=== PATIENT | male | born 1960 | race Caucasian/White ===

== ENCOUNTER 2017-01-28 07:34 | Day surgery (SDC) | payer BC ==
[2017-01-27 08:14] VITALS: BMI 37.5
[~2017-01-28 07:34] MED LIST: LACTATED RINGERS 1,000 ML IV SCH
[2017-01-28 08:19] VITALS: RESP 16; TEMP 97.3
[2017-01-28] MEDS ORDERED: PROPOFOL 10 MG/ML 20 ML VIAL IV ONE (09:05)
[2017-01-28] MEDS ORDERED: LIDOCAINE 1% INJ 10MG/ML (20 ML MDV) ONE (09:05)
--- NOTE | 2017-01-28 09:20 | P.PCN ---
Date of Procedure: 01/28/17 Procedure(s) Performed: BRIEF HISTORY: Patient is a 56-year-old pleasant white male, scheduled for an elective colonoscopy as a part of screening for colorectal neoplasia. PROCEDURE PERFORMED: Colonoscopy with snare polypectomy. PREOPERATIVE DIAGNOSIS: Screening for colon cancer. IV sedation per Anesthesia. PROCEDURE: After informed consent was obtained, the patient, was brought into the endoscopy unit. IV sedation was administered by Anesthesia under continuous monitoring. Digital rectal examination was normal. Initially the Olympus CF- 160 flexible video colonoscope was then inserted in the rectum, gradually advanced into the cecum without any difficulty. Careful examination was performed as the scope was gradually being withdrawn. Ileocecal valve and the appendiceal orifice were visualized and appeared normal. Prep was excellent. Mucosa of the cecum, appeared normal. In the ascending colon there was a 7-8 mm polyp that was removed by snare polypectomy. The rest of the ascending colon , transverse colon, descending colon, sigmoid colon, and rectum appeared normal. Scattered sigmoidal reticulosis seen. Retroflexion was performed in the rectum and no lesions were seen. The patient tolerated the procedure well. IMPRESSION: 7-8 mm ascending colon polyp status post polypectomy Scattered sigmoid diverticulosis. RECOMMENDATIONS: Findings of this examination were discussed with the patient as well as his family. He was advised to follow with the biopsy results. If the biopsy shows a tubular adenoma, he can have a repeat colonoscopy in 5 years.
[2017-01-28 09:56] VITALS: BP 108/73; PULSE 48
== END 2017-01-28 10:19 | disposition home or self-care (01) ==
LOC: EDBD → ORWHC2ENDO 07:34 → MERGE 08:25 → ORWHC2ENDO 10:19
PROVIDERS: ATTEND Internal Medicine Gastroenterology
DX: Z12.11 Encounter for screening for malignant neoplasm of colon (principal); D12.2 Benign neoplasm of ascending colon; K57.30 Diverticulosis of large intestine without perforation or abscess without bleeding; F17.200 Nicotine dependence, unspecified, uncomplicated
CPT/HCPCS: 45385; 88305; J2001; J2704

== ENCOUNTER → 2017-07-30 | Outpatient (CLI) | payer BC ==
[~2017-07-30] MED LIST changes: -LACTATED RINGERS 1,000 ML IV SCH; +REGADENOSON 0.4 MG/5 ML SYRINGE IV ONE
--- NOTE | 2017-07-30 11:54 | NM ---
EXAMINATION TYPE: NM stress lexiscan cardiolite DATE OF EXAM: 07/30/2017 COMPARISON: NONE HISTORY: Chest pain TECHNIQUE: After the intravenous administration of 10.39 mCi Tc 99m Sestamibi - Cardiolite resting S PECT images acquired 45 minutes post injection. The patient received 0.4mg Lexiscan, 26.9 mCi Tc 99m Sestamibi - Stress images obtained [address] injection FINDINGS: Review of stress and rest SPECT images demonstrates no reversible perfusion abnormality. There is a m oderate fixed defect involving the anterior and septal cruz as well as the ventricular apex in the d istribution of the left anterior descending coronary artery from prior infarct. Gated analysis shows hypokinesis of the anterior septal wall with an estimated left ventricular ejection fraction of 59 %. TID of 1.13 is within normal limits. IMPRESSION: 1. No scintigraphic evidence for reversible ischemia. 2. Moderate defect representing old area of infarct in the distribution of the left anterior descendi ng coronary artery. 3. Estimated left ventricular ejection fraction of 59%.
--- NOTE | 2017-07-30 12:09 | EST ---
EXERCISE STRESS DATE OF SERVICE: 07/30/2017 AGE: 57 SEX: Male HT: 5'10" WT: 250 PROTOCOL: Lexiscan Cardiolite STAGE: DURATION OF EXERCISE: HEART RATE REST: 72 BLOOD PRESSURE REST: 131/86 MAXIMUM HEART RATE ACHIEVED: 99 MAXIMUM BLOOD PRESSURE: 145/90 85% MPHR: 142 100% MPHR: 165 METS: INDICATIONS: Family history. CLINICAL INFORMATION: This patient underwent a Lexiscan Cardiolite stress test. This is the ECG portion of the stress test. Nuclear portion will be reported separately. Baseline heart rate 72 beats per minute. Baseline blood pressure 131/86 mmHg. Baseline 12-lead ECG shows sinus rhythm with normal cardiac intervals patient. The patient received Lexiscan infusion per protocol. He denied any chest discomfort. The heart rates and blood pressure remained within normal limits. No ECG evidence for ischemia. No arrhythmias noted. MMODL / IJN: [id number] /
== END | disposition home or self-care (01) ==
LOC: RADNMMAIN 08:20
PROVIDERS: ATTEND Internal Medicine
DX: I25.2 Old myocardial infarction (principal)
CPT/HCPCS: 93017; 78452; A9500; J2785

== ENCOUNTER → 2017-08-12 | Outpatient (CLI) | payer BC ==
[2017-08-12 10:13] LABS: HCT 45.7 % (39.0-53.0); HGB 15.6 gm/dL (13.0-17.5); MCH 30.7 pg (25.0-35.0); MCHC 34.1 g/dL (31.0-37.0); MCV 90.1 fL (80.0-100.0); Mean Platelet Volume 8.7; Platelet Count 184 k/uL (150-450); RBC 5.07 m/uL (4.30-5.90); RDW 13.1 % (11.5-15.5); WBC 5.4 k/uL (3.8-10.6)
[2017-08-12 10:26] LABS: Anion Gap 12 mmol/L; Blood Urea Nitrogen 17 mg/dL (9-20); Carbon Dioxide 29 mmol/L (22-30); Chloride 102 mmol/L (98-107); Potassium 4.9 mmol/L (3.5-5.1); Sodium 143 mmol/L (137-145)
== END | disposition home or self-care (01) ==
LOC: LABPAT 09:44
PROVIDERS: ATTEND Internal Medicine Cardiovascular Disease
DX: Z01.812 Encounter for preprocedural laboratory examination (principal); R94.30 Abnormal result of cardiovascular function study, unspecified
CPT/HCPCS: 36415; 80051; 82565; 84520; 85027

== ENCOUNTER 2017-08-21 06:09 | Day surgery (SDC) | payer BC ==
[2017-08-13 16:16] VITALS: BMI 35.2
[2017-08-21] MEDS ORDERED: ALPRAZolam 0.25 MG TAB PO PRN (06:24)
[2017-08-21] MEDS ORDERED: NITROGLYCERIN SL TABS 0.4 MG TAB SUBLINGUAL PRN (06:24)
[2017-08-21] MEDS ORDERED: ASPIRIN 325 MG TAB PO STA (06:24)
[2017-08-21] MEDS ORDERED: SODIUM CHLORIDE 0.9% 1,000 ML in EMPTY BAG 1 BAG IV ONE (06:24)
[2017-08-21] MEDS ORDERED: ALPRAZolam 0.5 MG TAB PO PRN (06:24)
[2017-08-21] MEDS ORDERED: ATORVASTATIN 80 MG TAB PO STA (06:24)
[2017-08-21 07:14] LABS: Basophils % (A) 0 %; Eosinophils # (A) 0.1 k/uL (0-0.7); Eosinophils % (A) 2 %; HCT 43.3 % (39.0-53.0); HGB 14.8 gm/dL (13.0-17.5); Lymphocytes # (A) 1.9 k/uL (1.0-4.8); Lymphocytes % (A) 38 %; MCH 31.3 pg (25.0-35.0); MCHC 34.2 g/dL (31.0-37.0); MCV 91.6 fL (80.0-100.0); Mean Platelet Volume 8.8; Monocytes # (A) 0.4 k/uL (0-1.0); Monocytes % (A) 8 %; Neutrophils # (A) 2.5 k/uL (1.3-7.7); Neutrophils % (A) 50 %; Platelet Count 179 k/uL (150-450); RBC 4.73 m/uL (4.30-5.90); RDW 13.1 % (11.5-15.5)
[2017-08-21 07:22] LABS: Anion Gap 12 mmol/L; Blood Urea Nitrogen 22 mg/dL (9-20); Calcium 9.1 mg/dL (8.4-10.2); Carbon Dioxide 24 mmol/L (22-30); Chloride 109 mmol/L (98-107); Glucose 98 mg/dL (74-99); Potassium 4.3 mmol/L (3.5-5.1); Sodium 145 mmol/L (137-145)
[2017-08-21] MEDS: MIDAZOLAM 2 MG/2 ML VIAL IVP ONE ×2 (07:43→07:46)
[2017-08-21] MEDS ORDERED: fentaNYL (PF) 50 MCG/ML 2 ML AMP IVP ONE (07:43)
[2017-08-21] MEDS ORDERED: LIDOCAINE 2% INJ 20 MG/ML SQ ONE (07:46)
[2017-08-21] MEDS: VERAPAMIL SYRINGE (5 MG/10 ML) INTRAARTER ONE ×2 (07:49→08:08)
[2017-08-21] MEDS ORDERED: VERAPAMIL SYRINGE (5 MG/10 ML) INTRAARTER ONE (07:49)
[2017-08-21] MEDS ORDERED: HEPARIN SODIUM 1,000 UN/ML (10ML VL) IV ONE (07:50)
[2017-08-21] MEDS ORDERED: IOPAMIDOL-370 125ML BTL INJ ONE (08:08)
[2017-08-21] MEDS ORDERED: SODIUM CHLORIDE 0.9% 1,000 ML IV SCH ×2 (08:15→13:30)
[2017-08-21] MEDS ORDERED: RX INFO: IV CONTRAST WAS GIVEN 1 EACH MISC MISCELLANE PRN ×2 (08:15→13:28)
--- NOTE | 2017-08-21 08:23 | P.PCN ---
Date of Procedure: 08/21/17 Preoperative Diagnosis: Chest pain and abnormal stress test Postoperative Diagnosis: Normal coronary arteries Procedure(s) Performed: Left heart catheterization without left ventriculography Description of Procedure: HISTORY: This is a 57-year-old gentleman with history of of ischemic heart disease in the family who was recently evaluated by stress test at the hospital because of chest pains. It was reported as showing fixed defect involving the anteroapical segment suggestive of myocardial infarction. However her LV function was preserved. Patient is given the choice of dobutamine echo or medical therapy with monitoring or cardiac catheterization for definitive diagnosis. Patient family preferred to have cardiac Catheterization. CONSENT:I have discussed the risks, benefits and alternative therapies for the above-mentioned procedure and for both sedation/analgesia as well as necessary blood product administration, if indicated, as they pertain to this patient. The patient has indicated understanding and acceptance of the risks and procedures discussed. PROCEDURE: Patient was brought to the lab in a fasting state. Patient was given some IV sedation. The right wrist is infiltrated with lidocaine and right radial artery was entered using Seldinger technique. A 6-Austrian catheter was left in place and selective coronary arteriography was performed. Patient tolerated the procedure well. TR band was applied for hemostasis. No immediate complications were noted and patient was transferred to [facility] in a stable condition Conscious Sedation: Versed 2 mg Fentanyl 50 g Duration 25 minutes HEMODYNAMICS: The aortic pressure is about 120/70. Left ankle end-diastolic pressure was not measured. SELECTIVE CORONARY ARTERIOGRAPHY: LEFT MAIN: Normal length and patent THE LEFT ANTERIOR DESCENDING CORONARY ARTERY: This is a good caliber vessel giving rise to several diagonal septal branches. The LAD and branches are free of occlusive disease. THE LEFT CIRCUMFLEX AND IS CORONARY ARTERY: This is a moderate caliber vessel and nondominant. He of occlusive disease THE RIGHT CORONARY ARTERY: This is a huge caliber vessel and nondominant giving rise to good-sized PDA and PLV branches. The RCA and its branches are free of occlusive disease. LEFT VENTRICULOGRAPHY: Not performed FINAL IMPRESSION: Normal coronary arteries. PLAN: Medical therapy and this factor modification PROGNOSIS: Fair
[2017-08-21 09:08] VITALS: TEMP 98
[2017-08-21 10:58] VITALS: RESP 16
[2017-08-21 11:40] VITALS: BP 127/72; PULSE 56
[2017-08-21] MEDS ORDERED: METOPROLOL TARTRATE 25 MG TAB PO SCH (21:00)
== END 2017-08-21 11:40 | disposition home or self-care (01) ==
LOC: CATHCVL 06:09
PROVIDERS: ATTEND Internal Medicine Cardiovascular Disease
DX: R07.89 Other chest pain (principal); R94.39 Abnormal result of other cardiovascular function study; Z82.49 Family history of ischemic heart disease and other diseases of the circulatory system; E78.00 Pure hypercholesterolemia, unspecified; Z87.891 Personal history of nicotine dependence; Z79.82 Long term (current) use of aspirin; Z91.048 Other nonmedicinal substance allergy status
CPT/HCPCS: 93454; 80048; 85025; C1894 ×2; C1769; J2001; J2250; J3010; J1644; Q9967

== ENCOUNTER 2018-04-08 06:34 | Observation (INO) | payer BC ==
--- NOTE | 2018-04-08 07:12 | XR ---
EXAMINATION TYPE: XR chest 2V DATE OF EXAM: 04/08/2018 COMPARISON: NONE HISTORY: Left-sided chest pain and pressure. Heaviness for 2 days. TECHNIQUE: Frontal and lateral views of the chest are obtained. FINDINGS: Overlying EKG leads are seen. There is no focal air space opacity, pleural effusion, or pne umothorax seen. The cardiac silhouette size is within normal limits. The osseous structures are in tact. IMPRESSION: No acute cardiopulmonary process.
--- NOTE | 2018-04-08 07:26 | ED ---
General Adult HPI - General Chief complaint: Chest Pain Stated complaint: Chest pain Source: patient Mode of arrival: wheelchair Limitations: no limitations - History of Present Illness Initial comments: Dictation was produced using Butlr dictation software. please excuse any grammatical, word or spelling errors. Chief Complaint: 57-year-old male past medical history of hip replacement presents with several weeks of chest pressure. History of Present Illness: Patient is a 57-year-old male with no significant medical history presents with chest pressure. He states his pain radiates to his neck and his left shoulder. He states he's been under a lot of stress. Port site is strong, history of cardiac disease. He had a cardiac cath performed earlier this year with no significant findings. Patient is a former smoker. Patient denies any diaphoresis with the chest pain. No nausea or vomiting. He denies that his symptoms are exacerbated with movement. Denies any shortness of breath. The ROS documented in this emergency department record has been reviewed and confirmed by me. Those systems with pertinent positive or negative responses have been documented in the HPI. All other systems are other negative and/or noncontributory. - Related Data Home Medications Medication Instructions Recorded Confirmed Ascorbic Acid [Vitamin C] 500 mg PO DAILY 04/08/18 04/08/18 Aspirin 650 mg PO ONCE 04/08/18 04/08/18 Ferrous Sulfate [Feosol] 325 mg PO DAILY 04/08/18 04/08/18 Magnesium 200 mg PO DAILY 04/08/18 04/08/18 Potassium 99 mg PO DAILY 04/08/18 04/08/18 Vitamin B Complex 1 cap PO DAILY 04/08/18 04/08/18 Allergies Allergy/AdvReac Type Severity Reaction Status Date / Time nickel Allergy showed up Verified 04/08/18 07:18 on allergy test Review of Systems ROS Statement: Those systems with pertinent positive or pertinent negative responses have been documented in the HPI. ROS Other: All systems not noted in ROS Statement are negative. Past Medical History Past Medical History: Myocardial Infarction (ID), Osteoarthritis (OA) Additional Past Medical History / Comment(s): see Dr. Crespo H & P History of Any Multi-Drug Resistant Organisms: None Reported Past Surgical History: Heart Catheterization, Joint Replacement, Orthopedic Surgery Additional Past Surgical History / Comment(s): RT hip replaced. RT KNEE SX. RT index FINGER REATTACHED. FACIAL RECONSTRUCTION. BONE GRAFTS-dental surg. BILAT CATARACT REMOVED Past Anesthesia/Blood Transfusion Reactions: No Reported Reaction Past Psychological History: No Psychological Hx Reported Smoking Status: Former smoker Past Alcohol Use History: Occasional Past Drug Use History: None Reported - Past Family History Mother Family Medical History: No Reported History General Exam - General Exam Comments Initial Comments: PHYSICAL EXAM: General Impression: Alert and oriented x3, not in acute distress HEENT: Normocephalic atraumatic, extra-ocular movements intact, pupils equal and reactive to light bilaterally, mucous membranes moist. Cardiovascular: Heart regular rate and rhythm, S1&S2 audible, no murmurs, rubs or gallops Chest: Lungs clear to auscultation bilaterally, no rhonchi, no wheeze, no rales Abdomen: Bowel sounds present, abdomen soft, non-tender, non-distended, no organomegaly Musculoskeletal: Pulses present and equal in all extremities, no peripheral edema Motor: Power 5/5 bilaterally, no focal deficits noted Neurological: CN II-XII grossly intact, no focal motor or sensory deficits noted Skin: Intact with no visualized rashes Psych: Normal affect and mood Limitations: no limitations Course Vital Signs 04/08/18 04/08/18 06:38 06:54 Temperature 98.3 F Pulse Rate 60 63 Respiratory 17 17 Rate Blood Pressure 144/87 137/95 O2 Sat by Pulse 97 98 Oximetry Medical Decision Making - Medical Decision Making ED course: 57-year-old male with clinical presentation consistent with atypical chest pain with typical features. Vital signs upon arrival are within acceptable limits. No old EKG for comparison. There appears to be nonspecific changes however no signs of active ischemia or infarction.Laboratory evaluation obtained. CBC, coag panel, metabolic panel, cardiac enzymes, BNP are unremarkable. Patient reevaluated found to be comfortable. At this point there is no clinical indication for administration of heparin. Given that patient has atypical chest pain with typical features and multiple risk factors we'll plan to have patient admitted to observation for cardiology consultation and serial troponins. Patient given aspirin. Patient understandable agreeable to disposition. EKG Interpretation: A 12 lead EKG was obtained. It was interpreted by myself and attending physician. There is a P wave before every QRS complex. Rate is 58. Rhythm is sinus bradycardia,. Interval 184, QS 102, QTC 422. QT is not prolonged. No ST segment depression or elevation. Overall, this EKG is unremarkable - Lab Data Result diagrams: 04/08/18 06:59 04/08/18 06:59 Lab Results 04/08/18 04/08/18 04/08/18 Range/Units 06:59 06:59 06:59 WBC 5.0 (3.8-10.6) k/uL RBC 4.91 (4.30-5.90) m/uL Hgb 15.1 (13.0-17.5) gm/dL Hct 45.7 (39.0-53.0) % MCV 93.2 (80.0-100.0) fL MCH 30.8 (25.0-35.0) pg MCHC 33.0 (31.0-37.0) g/dL RDW 13.3 (11.5-15.5) % Plt Count 188 (150-450) k/uL Neutrophils % 51 % Lymphocytes % 36 % Monocytes % 8 % Eosinophils % 3 % Basophils % 1 % Neutrophils # 2.5 (1.3-7.7) k/uL Lymphocytes # 1.8 (1.0-4.8) k/uL Monocytes # 0.4 (0-1.0) k/uL Eosinophils # 0.1 (0-0.7) k/uL Basophils # 0.0 (0-0.2) k/uL PT (9.0-12.0) sec INR (<1.2) APTT (22.0-30.0) sec Sodium 141 (137-145) mmol/L Potassium 4.3 (3.5-5.1) mmol/L Chloride 108 H (98-107) mmol/L Carbon Dioxide 24 (22-30) mmol/L Anion Gap 9 mmol/L BUN 17 (9-20) mg/dL Creatinine 0.84 (0.66-1.25) mg/dL Est GFR (CKD-EPI)AfAm >90 (>60 ml/min/1.73 sqM) Est GFR (CKD-EPI)NonAf >90 (>60 ml/min/1.73 sqM) Glucose 105 H (74-99) mg/dL Calcium 9.4 (8.4-10.2) mg/dL Magnesium 2.4 H (1.6-2.3) mg/dL Total Bilirubin 0.6 (0.2-1.3) mg/dL AST 27 (17-59) U/L ALT 21 (21-72) U/L Alkaline Phosphatase 48 (38-126) U/L Total Creatine Kinase 88 (55-170) U/L CK-MB (CK-2) 1.0 (0.0-2.4) ng/mL CK-MB (CK-2) Rel Index 1.1 Troponin I <0.012 (0.000-0.034) ng/mL NT-Pro-B Natriuret Pep pg/mL Total Protein 7.4 (6.3-8.2) g/dL Albumin 4.4 (3.5-5.0) g/dL 04/08/18 04/08/18 Range/Units 06:59 06:59 WBC (3.8-10.6) k/uL RBC (4.30-5.90) m/uL Hgb (13.0-17.5) gm/dL Hct (39.0-53.0) % MCV (80.0-100.0) fL MCH (25.0-35.0) pg MCHC (31.0-37.0) g/dL RDW (11.5-15.5) % Plt Count (150-450) k/uL Neutrophils % % Lymphocytes % % Monocytes % % Eosinophils % % Basophils % % Neutrophils # (1.3-7.7) k/uL Lymphocytes # (1.0-4.8) k/uL Monocytes # (0-1.0) k/uL Eosinophils # (0-0.7) k/uL Basophils # (0-0.2) k/uL PT 10.0 (9.0-12.0) sec INR 0.9 (<1.2) APTT 24.5 (22.0-30.0) sec Sodium (137-145) mmol/L Potassium (3.5-5.1) mmol/L Chloride (98-107) mmol/L Carbon Dioxide (22-30) mmol/L Anion Gap mmol/L BUN (9-20) mg/dL Creatinine (0.66-1.25) mg/dL Est GFR (CKD-EPI)AfAm (>60 ml/min/1.73 sqM) Est GFR (CKD-EPI)NonAf (>60 ml/min/1.73 sqM) Glucose (74-99) mg/dL Calcium (8.4-10.2) mg/dL Magnesium (1.6-2.3) mg/dL Total Bilirubin (0.2-1.3) mg/dL AST (17-59) U/L ALT (21-72) U/L Alkaline Phosphatase (38-126) U/L Total Creatine Kinase (55-170) U/L CK-MB (CK-2) (0.0-2.4) ng/mL CK-MB (CK-2) Rel Index Troponin I (0.000-0.034) ng/mL NT-Pro-B Natriuret Pep 16 pg/mL Total Protein (6.3-8.2) g/dL Albumin (3.5-5.0) g/dL Disposition Clinical Impression: Chest pain Disposition: ADMITTED IP TO THIS HOSP Condition: Fair Referrals: Celeste Smith MD [Primary Care Provider] - 1-2 days Decision Time: 08:17
[2018-04-08 07:28] LABS: Basophils % (A) 1 %; Eosinophils # (A) 0.1 k/uL (0-0.7); Eosinophils % (A) 3 %; HCT 45.7 % (39.0-53.0); HGB 15.1 gm/dL (13.0-17.5); Lymphocytes # (A) 1.8 k/uL (1.0-4.8); Lymphocytes % (A) 36 %; MCH 30.8 pg (25.0-35.0); MCV 93.2 fL (80.0-100.0); Mean Platelet Volume 8.4; Monocytes # (A) 0.4 k/uL (0-1.0); Monocytes % (A) 8 %; Neutrophils # (A) 2.5 k/uL (1.3-7.7); Neutrophils % (A) 51 %; Platelet Count 188 k/uL (150-450); RBC 4.91 m/uL (4.30-5.90); RDW 13.3 % (11.5-15.5)
[2018-04-08 07:32] LABS: ALT 21 U/L (21-72); AST 27 U/L (17-59); Albumin 4.4 g/dL (3.5-5.0); Alkaline Phosphatase 48 U/L (38-126); Anion Gap 9 mmol/L; Blood Urea Nitrogen 17 mg/dL (9-20); Calcium 9.4 mg/dL (8.4-10.2); Carbon Dioxide 24 mmol/L (22-30); Chloride 108 mmol/L (98-107); Glucose 105 mg/dL (74-99); Magnesium 2.4 mg/dL (1.6-2.3); Potassium 4.3 mmol/L (3.5-5.1); Sodium 141 mmol/L (137-145); Total Bilirubin 0.6 mg/dL (0.2-1.3); Total Protein 7.4 g/dL (6.3-8.2)
[2018-04-08 07:37] LABS: INR 0.9 (<1.2); Partial Thromboplastin Time 24.5 sec (22.0-30.0)
[2018-04-08 07:44] LABS: Creatine Kinase 88 U/L (55-170)
[2018-04-08 07:58] LABS: Troponin I <0.012 ng/mL (0.000-0.034)
[2018-04-08] MEDS ORDERED: ASPIRIN 81 MG PO STA (08:07)
[2018-04-08] MEDS ORDERED: NITROGLYCERIN SL TABS 0.4 MG TAB SUBLINGUAL PRN (08:17)
[2018-04-08] MEDS ORDERED: SODIUM CHLORIDE 0.9% 1,000 ML IV SCH (08:30)
[2018-04-08 09:23] VITALS: RESP 18
[2018-04-08 11:46] VITALS: BP 121/72; PULSE 53; TEMP 98.2
[2018-04-08 13:52] LABS: Creatine Kinase 62 U/L (55-170)
[2018-04-08 14:06] LABS: Creatine Kinase MB 0.6 ng/mL (0.0-2.4); Troponin I <0.012 ng/mL (0.000-0.034)
--- NOTE | 2018-04-08 14:07 | P.CRDCN ---
History of Present Illness History of present illness: This is a pleasant 57-year-old male past medical history significant for former nicotine dependence. He denies history of coronary artery disease, hypertension, dyslipidemia or diabetes mellitus. He follows with Dr. Crespo in the office. We have been asked to see him in consultation for chest pain. Earlier this year in July he underwent a Lexiscan stress test as an outpatient that showed a fixed defect of anteroapical region. He then underwent an elective catheterization for further investigation. The cath revealed normal coronary arteries with no evidence of obstructive disease in any of the coronary arteries. He states for the last 2 months he has been experiencing a tight squeezing sensation in his chest intermittently. The symptoms typically come when he is either at work or talking about woek. He is currently dealing with a very stressful situation at work. 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 He denies ever having these symptoms while he is walking or exerting himself. He denies radiation to the arm, back, neck or jaw. He denies associated shortness of breath, dizziness, palpitations, nausea, vomiting or diaphoresis. EKG reveals sinus bradycardia heart rate 58. Chest x-ray is negative for an acute cardiopulmonary process. Laboratory data reviewed, WBC 5.0, hemoglobin 15.1, platelets 188, sodium 141, potassium 4.3, creatinine 0.84, magnesium 2.4, cardiac enzymes negative 1, NT proBNP 16. He takes no daily cardiac medications. He does take magnesium supplementation he states secondary to his poor diet. He has been advised to decrease the frequency her dose of this medication. At the time of my exam: CONSTITUTIONAL: Denies fever. Denies chills. EYES: Denies blurred vision. Denies vision changes. Denies eye pain. EARS, NOSE, MOUTH & THROAT: Denies headache. Denies sore throat. Denies ear pain. CARDIOVASCULAR: Denies chest pain. Denies shortness of breath. Denies orthopnea. Denies PND. Denies palpitations. RESPIRATORY: Denies cough. GASTROINTESTINAL: Denies abdominal pain. Denies diarrhea. Denies constipation. Denies nausea. Denies vomiting. MUSCULOSKELETAL: Denies myalgias. INTEGUMENTARY: Denies pruitis. Denies rash. NEUROLOGIC: Denies numbness. Denies tingling. Denies weakness. PSYCHIATRIC: Denies anxiety. Denies depression. ENDOCRINE: Denies fatigue. Denies weight change. Denies polydipsia. Denies polyurina. GENITOURINARY: Denies burning, hematuria or urgency with micturation. HEMATOLOGIC: Denies history of anemia. Denies bleeding. Blood pressure 121/72 heart rate 53 afebrile maintaining oxygen saturation on room air GENERAL: This is a 57-year-old male in no apparent distress at the time of my examination. HEENT: Head is atraumatic, normocephalic. Pupils are equal, round. Sclerae anicteric. Conjunctivae are clear. Mucous membranes of the mouth are moist. Neck is supple. There is no jugular venous distention. No carotid bruit is heard. LUNGS: Clear to auscultation no wheezes, rales or rhonchi. No chest wall tenderness is noted on palpation or with deep breathing. HEART: Regular rate and rhythm without murmurs, rubs or gallops. S1 and S2 heard. ABDOMEN: Soft, nontender. Bowel sounds are heard. No organomegaly noted. EXTREMITIES: No evidence of peripheral edema and no calf tenderness noted. VASCULAR: Radial and dorsalis pedis pulses palpated, no evidence of clubbing. NEUROLOGIC: Patient is awake, alert and oriented x3. ASSESSMENT Chest pain, atypical. Recent cardiac catheterization performed in July of this year showed normal coronary arteries with no disease. Possible anxiety reaction due to increased stress surrounding his job. Former nicotine dependence, quit 2016 Obesity, BMI 37 PLAN Continue to obtain serial cardiac enzymes to rule out an acute coronary event. With recent normal cardiac catheterization, there is no further cardiac workup at this time. If enzymes are normal she is stable from a cardiac perspective. Follow up with Dr. Crespo as needed. Thank you kindly for this consultation. Nurse Practitioner note has been reviewed, I agree with a documented findings and plan of care. Patient was seen and examined. Past Medical History Past Medical History: Myocardial Infarction (TN), Osteoarthritis (OA) Additional Past Medical History / Comment(s): Prior TN found diagnostically, arthritis lower R side of back, LLD syndrome (R leg shorter). Last Myocardial Infarction Date:: unkn History of Any Multi-Drug Resistant Organisms: None Reported Past Surgical History: Heart Catheterization, Joint Replacement, Orthopedic Surgery Additional Past Surgical History / Comment(s): 07/2017 Cardiac cath-normal, R hip muscle surgery then total R hip arthroplasty, R knee arthroscopic surgery, R index finger reattachment, facial reconstruction, dental surgery with bone graft, colonoscopy with benign polyp, bilateral cataract removals with lens implants. Past Anesthesia/Blood Transfusion Reactions: No Reported Reaction Smoking Status: Former smoker - Past Family History Mother Family Medical History: COPD Additional Family Medical History / Comment(s): Mother from emphysema at the age of 79yrs. Brother(s) Family Medical History: Myocardial Infarction (TN) Additional Family Medical History / Comment(s): Brother had a TN at the age of 45yrs. He at the age of 65yrs. Father Family Medical History: Coronary Artery Disease (CAD), Myocardial Infarction (TN ), Vascular Disorder Additional Family Medical History / Comment(s): Father had a TN in his late 50s. He had AAA repair, He at the age of 85yrs from sepsis-during a cholecystectomy his bowel was perforated. Medications and Allergies Home Medications Medication Instructions Recorded Confirmed Type Ascorbic Acid [Vitamin C] 500 mg PO DAILY 04/08/18 04/08/18 History Aspirin 650 mg PO ONCE 04/08/18 04/08/18 History Ferrous Sulfate [Feosol] 325 mg PO DAILY 04/08/18 04/08/18 History Magnesium 200 mg PO DAILY 04/08/18 04/08/18 History Potassium 99 mg PO DAILY 04/08/18 04/08/18 History Vitamin B Complex 1 cap PO DAILY 04/08/18 04/08/18 History Allergies Allergy/AdvReac Type Severity Reaction Status Date / Time nickel Allergy showed up Verified 04/08/18 07:18 on allergy test Physical Exam Vitals: Vital Signs Temp Pulse Pulse Resp BP BP Pulse Ox 04/08/18 11:44 98.2 F 53 L 18 121/72 98 04/08/18 11:20 52 L 18 124/79 99 04/08/18 09:22 88 18 137/95 96 04/08/18 06:54 63 17 137/95 98 04/08/18 06:38 98.3 F 60 17 144/87 97 Intake and Output 04/07/18 04/08/18 04/08/18 22:59 06:59 14:59 Other: Weight 113.398 kg 117 kg Results 04/08/18 06:59 12/13/18 06:59 Cardiac Enzymes 04/08/18 04/08/18 Range/Units 06:59 06:59 AST 27 (17-59) U/L CK-MB (CK-2) 1.0 (0.0-2.4) ng/mL Troponin I <0.012 (0.000-0.034) ng/mL Coagulation 04/08/18 Range/Units 06:59 PT 10.0 (9.0-12.0) sec APTT 24.5 (22.0-30.0) sec CBC 04/08/18 Range/Units 06:59 WBC 5.0 (3.8-10.6) k/uL RBC 4.91 (4.30-5.90) m/uL Hgb 15.1 (13.0-17.5) gm/dL Hct 45.7 (39.0-53.0) % Plt Count 188 (150-450) k/uL Comprehensive Metabolic Panel 04/08/18 Range/Units 06:59 Sodium 141 (137-145) mmol/L Potassium 4.3 (3.5-5.1) mmol/L Chloride 108 H (98-107) mmol/L Carbon Dioxide 24 (22-30) mmol/L BUN 17 (9-20) mg/dL Creatinine 0.84 (0.66-1.25) mg/dL Glucose 105 H (74-99) mg/dL Calcium 9.4 (8.4-10.2) mg/dL AST 27 (17-59) U/L ALT 21 (21-72) U/L Alkaline Phosphatase 48 (38-126) U/L Total Protein 7.4 (6.3-8.2) g/dL Albumin 4.4 (3.5-5.0) g/dL Current Medications Generic Name Dose Route Start Last Admin Trade Name Freq PRN Reason Stop Dose Admin Aspirin 325 mg 04/09/18 09:00 Aspirin PO DAILY MARTIN Sodium Chloride 1,000 mls @ 100 mls/hr 04/08/18 08:30 04/08/18 09:20 Saline 0.9% IV 100 mls/hr .Q10H MARTIN Administration Nitroglycerin 0.4 mg 04/08/18 08:17 Nitrostat SUBLINGUAL Q5M PRN Chest Pain Intake and Output 04/07/18 04/08/18 04/08/18 22:59 06:59 14:59 Other: Weight 113.398 kg 117 kg Patient Weight 04/09/18 06:59 Weight 117 kg 04/08/18 06:59 04/08/18 06:59
--- NOTE | 2018-04-08 16:05 | P.HPIM ---
History of Present Illness this is a pleasant 57 yo m who presents with intermittent chest pain that comes and goes over the last 2 months , each time it lasts about 10-15 min, radiating to the neck and arms. Mild to moderate in severity however it is gone now. No associated dyspnea. No sweating. It has been associated with some dizziness but has been resolved to now. Patient denies history of recent surgery or travel. He is not tachycardic and he is saturating 98% on room air. He denies dyspnea. No leg pain or swelling or induration. No hemoptysis. No history of malignancy. Coat Agent evaluated the patient and acute coronary syndrome has been ruled out as per their team. 2 cardiac enzymes were negative. Patient has history of negative cardiac catheter last July as per cardiology team. Cartilage team cleared the patient for discharge. however pt has a lot of stress from work , he wants to retire in3 months and they want him to leave earlier than that . Patient was cleared medically and cardiology sleep for discharge. Problems and management plan was discussed with the patient and he verbalized understanding and acceptance Patient is found stable and can be discharged home however he needs follow-up as an outpatient. He has an appointment with his PCP Dr. Smith next week Patient was consult if he develops any recurrent chest pain, dyspnea on any other symptoms like coughing, hemoptysis, dizziness, to come to the emergency room and call 911 Review of Systems CONSTITUTIONAL: No fever, no malaise, no fatigue. HEENT: No recent visual problems or hearing problems. Denied any sore throat. CARDIOVASCULAR: No orthopnea, PND, no palpitations, no syncope. PULMONARY: No shortness of breath, no cough, no hemoptysis. GASTROINTESTINAL: No diarrhea, no nausea, no vomiting, no abdominal pain. Normoactive bowel sounds. NEUROLOGICAL: No headaches, no weakness, no numbness. HEMATOLOGICAL: Denies any bleeding or petechiae. GENITOURINARY: Denies any burning micturition, frequency, or urgency. MUSCULOSKELETAL/RHEUMATOLOGICAL: Denies any joint pain, swelling, or any muscle pain. ENDOCRINE: Denies any polyuria or polydipsia. Past Medical History Past Medical History: Myocardial Infarction (OR), Osteoarthritis (OA) Additional Past Medical History / Comment(s): Prior OR found diagnostically, arthritis lower R side of back, LLD syndrome (R leg shorter). Last Myocardial Infarction Date:: unkn History of Any Multi-Drug Resistant Organisms: None Reported Past Surgical History: Heart Catheterization, Joint Replacement, Orthopedic Surgery Additional Past Surgical History / Comment(s): 07/2017 Cardiac cath-normal, R hip muscle surgery then total R hip arthroplasty, R knee arthroscopic surgery, R index finger reattachment, facial reconstruction, dental surgery with bone graft, colonoscopy with benign polyp, bilateral cataract removals with lens implants. Past Anesthesia/Blood Transfusion Reactions: No Reported Reaction Smoking Status: Former smoker - Past Family History Mother Family Medical History: COPD Additional Family Medical History / Comment(s): Mother from emphysema at the age of 79yrs. Brother(s) Family Medical History: Myocardial Infarction (OR) Additional Family Medical History / Comment(s): Brother had a OR at the age of 45yrs. He at the age of 65yrs. Father Family Medical History: Coronary Artery Disease (CAD), Myocardial Infarction (OR ), Vascular Disorder Additional Family Medical History / Comment(s): Father had a OR in his late 50s. He had AAA repair, He at the age of 85yrs from sepsis-during a cholecystectomy his bowel was perforated. Medications and Allergies Home Medications Medication Instructions Recorded Confirmed Type Ascorbic Acid [Vitamin C] 500 mg PO DAILY 04/08/18 04/08/18 History Aspirin 650 mg PO ONCE 04/08/18 04/08/18 History Ferrous Sulfate [Feosol] 325 mg PO DAILY 04/08/18 04/08/18 History Magnesium 200 mg PO DAILY 04/08/18 04/08/18 History Potassium 99 mg PO DAILY 04/08/18 04/08/18 History Vitamin B Complex 1 cap PO DAILY 04/08/18 04/08/18 History Allergies Allergy/AdvReac Type Severity Reaction Status Date / Time nickel Allergy showed up Verified 04/08/18 07:18 on allergy test Physical Exam Vitals: Vital Signs Temp Pulse Pulse Resp BP BP Pulse Ox 04/08/18 11:44 98.2 F 53 L 18 121/72 98 04/08/18 11:20 52 L 18 124/79 99 04/08/18 09:22 88 18 137/95 96 04/08/18 06:54 63 17 137/95 98 04/08/18 06:38 98.3 F 60 17 144/87 97 Intake and Output 04/08/18 04/08/18 04/08/18 06:59 14:59 22:59 Other: Weight 113.398 kg 117 kg GENERAL: The patient is alert and oriented x3, not in any acute distress. Well developed, well nourished. HEENT: Pupils are round and equally reacting to light. EOMI. No scleral icterus. No conjunctival pallor. Normocephalic, atraumatic. No pharyngeal erythema. No thyromegaly. CARDIOVASCULAR: S1 and S2 present. No murmurs, rubs, or gallops. PULMONARY: Chest is clear to auscultation, no wheezing or crackles. ABDOMEN: Soft, nontender, nondistended, normoactive bowel sounds. No palpable organomegaly. MUSCULOSKELETAL: No joint swelling or deformity. EXTREMITIES: No cyanosis, clubbing, or pedal edema. NEUROLOGICAL: Gross neurological examination did not reveal any focal deficits. SKIN: No rashes. Results CBC & Chem 7: 04/08/18 06:59 04/08/18 06:59 Labs: Abnormal Lab Results - Last 24 Hours (Table) 04/08/18 Range/Units 06:59 Chloride 108 H (98-107) mmol/L Glucose 105 H (74-99) mg/dL Magnesium 2.4 H (1.6-2.3) mg/dL Thrombosis Risk Factor Assmnt - Choose All That Apply Any of the Below Risk Factors Present?: Yes Each Factor Represents 1 point: Age 41-60 years, Obesity (BMI >25) Other Risk Factors: No Other congenital or acquired thrombophilia - If yes, enter type in comment: No Thrombosis Risk Factor Assessment Total Risk Factor Score: 2 Thrombosis Risk Factor Assessment Level: Low Risk Assessment and Plan Plan: This is a pleasant 57 years old male who presents because of chest pain, which has been resolved. Cardiology cleared the patient for discharge. Patient chest pain resolved now and he doesn't have any other symptoms. Chest pain could be musculoskeletal or related to work stress. Suspicion for pulmonary causes is very low as patient doesn't have any respiratory symptoms, His saturations well and his chest pain has resolved. Patient was advised to follow up with his PCP on possible GI workup as an outpatient. GI contact information has been provided for the patient.
--- NOTE | 2018-04-08 16:06 | P.DS ---
Providers Date of admission: 04/08/18 08:19 Attending physician: Macario Cisneros Consults: 04/08/18 08:07 Consult Physician Routine Consulting Provider: Dom Crespo Consult Reason/Comments: chest pain Do you want consulting provider notified?: Yes Primary care physician: Celeste Smith [place] [facility] Course: Please review H&P from today Patient Condition at Discharge: Fair Plan - Discharge Summary Discharge Rx Participant: No New Discharge Prescriptions: No Action Ferrous Sulfate [Feosol] 325 mg PO DAILY Aspirin 650 mg PO ONCE Ascorbic Acid [Vitamin C] 500 mg PO DAILY Vitamin B Complex 1 cap PO DAILY Potassium 99 mg PO DAILY Magnesium 200 mg PO DAILY Discharge Medication List Ascorbic Acid [Vitamin C] 500 mg PO DAILY 04/08/18 [History] Aspirin 650 mg PO ONCE 04/08/18 [History] Ferrous Sulfate [Feosol] 325 mg PO DAILY 04/08/18 [History] Magnesium 200 mg PO DAILY 04/08/18 [History] Potassium 99 mg PO DAILY 04/08/18 [History] Vitamin B Complex 1 cap PO DAILY 04/08/18 [History] Follow up Appointment(s)/Referral(s): Abby Gayle MD [STAFF PHYSICIAN] - 1 Week (disposition clerk ) Celeste Smith MD [Primary Care Provider] - 1-2 days Dom Crespo MD [STAFF PHYSICIAN] - 2 Weeks Activity/Diet/Wound Care/Special Instructions: Cardiac diet Activity is limited till you see your doctor Discharge Disposition: HOME SELF-CARE
[2018-04-09] MEDS ORDERED: ASPIRIN 325 MG TAB PO SCH (09:00)
== END 2018-04-08 16:21 | disposition home or self-care (01) ==
LOC: EC 06:34 → 1SOBS 08:19
PROVIDERS: ADMIT Hospitalist; ATTEND Hospitalist
DX: R07.89 Other chest pain (principal); Z87.891 Personal history of nicotine dependence; I25.2 Old myocardial infarction; E66.9 Obesity, unspecified; Z68.37 Body mass index [BMI] 37.0-37.9, adult; M46.96 Unspecified inflammatory spondylopathy, lumbar region; Z79.82 Long term (current) use of aspirin; Z79.899 Other long term (current) drug therapy; Z91.048 Other nonmedicinal substance allergy status; Z82.5 Family history of asthma and other chronic lower respiratory diseases; Z82.49 Family history of ischemic heart disease and other diseases of the circulatory system
CPT/HCPCS: 96361 ×2; 96360; 99285; 36415; 93005; 83880; 80053; 82550; 82553; 83735; 84484; 85025; 85610; 85730; 71046; G0378

== ENCOUNTER 2022-09-10 08:48 | Day surgery (SDC) | payer BC ==
[2022-09-08 15:50] VITALS: BMI 41.5
[~2022-09-10 08:48] MED LIST changes: +LACTATED RINGERS 1,000 ML IV SCH; +LIDOCAINE 1% (10MG/ML) FOR IV START INTRADERMA PRN; -REGADENOSON 0.4 MG/5 ML SYRINGE IV ONE
[2022-09-10 09:07] VITALS: TEMP 97.4
[2022-09-10] MEDS ORDERED: LACTATED RINGERS 1,000 ML IV ONE ×3 (09:08→10:27)
[2022-09-10] MEDS ORDERED: PROPOFOL 10 MG/ML 20 ML VIAL IV ONE (10:05)
--- NOTE | 2022-09-10 10:23 | P.PCN ---
Date of Procedure: 09/10/22 Procedure(s) Performed: BRIEF HISTORY: Patient is a 62-year-old pleasant white male scheduled for an elective colonoscopy as a part of evaluation of history of colon polyps. Last colonoscopy was 6 years ago PREOPERATIVE DIAGNOSIS: History of colon polyps. IV sedation per Anesthesia. PROCEDURE: After informed consent was obtained, the patient, was brought into the endoscopy unit. IV sedation was administered by Anesthesia under continuous monitoring. Digital rectal examination was normal. Initially the Olympus CF-160 flexible video colonoscope was then inserted in the rectum, gradually advanced into the cecum without any difficulty. Careful examination was performed as the scope was gradually being withdrawn. Ileocecal valve and the appendiceal orifice were visualized and appeared normal. Prep was excellent. Mucosa of the cecum, ascending colon, transverse colon, descending colon, sigmoid colon, and rectum appeared normal. Scattered sigmoid diverticulosis seen. Retroflexion was performed in the rectum and no lesions were seen. The patient tolerated the procedure well. IMPRESSION: Normal-appearing colon from rectum to cecum with no evidence of colorectal neoplasia Scattered sigmoid diverticula . RECOMMENDATIONS: Findings of this examination were discussed with the patient as well as his family. He was advised to have a repeat screening colonoscopy in 10 years
[2022-09-10 10:55] VITALS: BP 146/76; PULSE 57; RESP 18
== END 2022-09-10 11:06 | disposition home or self-care (01) ==
LOC: ORWHC2ENDO 08:48
PROVIDERS: ATTEND Internal Medicine Gastroenterology
DX: Z12.11 Encounter for screening for malignant neoplasm of colon (principal); K57.30 Diverticulosis of large intestine without perforation or abscess without bleeding; I25.2 Old myocardial infarction; I10 Essential (primary) hypertension; I25.10 Atherosclerotic heart disease of native coronary artery without angina pectoris; Z96.649 Presence of unspecified artificial hip joint; Z98.41 Cataract extraction status, right eye; Z98.42 Cataract extraction status, left eye; Z86.010 Personal history of colon polyps; Z79.899 Other long term (current) drug therapy
CPT/HCPCS: 45378; J2704